=== PATIENT | female | born 1960 | race Caucasian/White ===

== ENCOUNTER → 2021-05-10 15:14 | Outpatient (CLI) | payer OTHER, SELFPAY ==
--- NOTE | ~2021-05-10 | MM_ITS ---
EXAMINATION: MM screening paula BI w ashli HISTORY: Screening TECHNIQUE: Craniocaudal and mediolateral oblique 3-D tomosynthesis images were obtained and synthetic 2-D images were generated. CAD analysis was submitted and interpreted. COMPARISON: Comparison to multiple prior studies sequentially, with oldest reviewed study dated 07/25. BREAST PARENCHYMAL COMPOSITION: Breast composed of scattered areas of fibroglandular density FINDINGS: There is no evidence of suspicious mass, calcification, or architectural distortion to sugg est malignancy in either breast. There has been no suspicious interval change. IMPRESSION: 1. No mammographic evidence of malignancy. 2. Recommend routine screening mammography in one year. BI-RADS Category 1: Negative Reviewed, dictated and finalized at location A. PREMISE SERVICE REPRESENTATIVE
== END ==
PROVIDERS: PCP Family Medicine; Visit Provider Physician Assistant Medical
DX: Z12.31 Encounter for screening mammogram for malignant neoplasm of breast (principal)
CPT/HCPCS: 77063; 77067

== ENCOUNTER → 2022-09-12 09:21 | Outpatient (CLI) | payer BC, SELFPAY ==
--- NOTE | ~2022-09-12 | XR_ITS ---
Clinical Indication: Cough PA and lateral views of the chest: Comparison: None Findings: The lungs are clear, without evidence of focal consolidation or pleural effusion. Cardiome diastinal silhouette is within normal limits. Bones and soft tissues are unremarkable. Impression: Normal chest. Reviewed, dictated and finalized at location . Impression: Normal chest.
== END ==
PROVIDERS: PCP Family Medicine; Visit Provider Physician Assistant
DX: R05.3 Chronic cough (principal); R06.02 Shortness of breath
CPT/HCPCS: 71046

== ENCOUNTER → 2022-10-12 10:31 | Outpatient (CLI) | payer BC, SELFPAY ==
--- NOTE | ~2022-10-12 | MM_ITS ---
EXAMINATION: MM screening paula BI w ashli HISTORY: Screening mammogram TECHNIQUE: Craniocaudal and mediolateral oblique 3-D tomosynthesis images were obtained and synthetic 2-D images were generated. CAD analysis was submitted and interpreted. COMPARISON: 05/10/2021 bilateral screening mammogram 02/21/2019 diagnostic right mammogram and limited right breast ultrasound examination 02/12/2019 bilateral screening mammogram BREAST PARENCHYMAL COMPOSITION: There are scattered areas of fibroglandular density. FINDINGS: Biopsy marker in the upper outer right breast; history of prior benign right stereotactic b reast biopsy. Occasional bilateral benign calcifications. Stable bilateral benign axillary tail lymph nodes. There is no evidence of suspicious mass, calcification, or architectural distortion to suggest malignancy i n either breast. There has been no suspicious interval change. IMPRESSION: 1. No mammographic evidence of malignancy. 2. Recommend routine screening mammography in one year. BI-RADS Category 1: Negative Reviewed, dictated and finalized at location A.
== END ==
PROVIDERS: PCP Family Medicine; Visit Provider Physician Assistant
DX: Z12.31 Encounter for screening mammogram for malignant neoplasm of breast (principal)
CPT/HCPCS: 77063; 77067

== ENCOUNTER 2023-05-02 09:51 | Outpatient (CLI) | payer MEDICARE, SELFPAY ==
--- NOTE | 2023-05-02 13:09 | WPDPFTINT ---
PFT Procedure Performed PFT Procedure Performed Plethysmography (Lung Vol) Diffusing Cap (DLCO) Flow Vol Loop Spirometry w/o Bronchodil PFT Interpretation This is a pulmonary function test with spirometry, plethysmography and diffusing capacity. The test was performed and results interpreted in accordance with the 2019 and 2005 ATS/ERS Task Force guidelines respectively using the Global Lung Function Initiative-2012 reference equations. Patient demonstrated good effort and cooperation. Reproducibility criteria were met. The quality of the spirometry maneuver was Grade A. Findings: Spirometry: Contour the inspiratory and expiratory flow tracing are normal. The FVC is 2.45 L, 90% predicted. The FEV1 is 1.92 L, 89% predicted. The FEV1: FVC ratio 78%. Plethysmography: The total lung capacity is 4.42 L, 96% predicted. The functional residual capacity is 2.01 L, 77% predicted. The residual volume is 1.67 L, 87% predicted. Diffusing capacity: The diffusing capacity unadjusted for hemoglobin and carboxyhemoglobin is 15.6, 78% predicted. The diffusing capacity adjusted for alveolar volume is 4.02, 89% predicted. Impression: The spirometry is normal without evidence of an obstructive abnormality. The lung volumes are normal. The diffusing capacity is normal. There are no prior studies for comparison
== END 2023-05-02 09:52 | disposition home or self-care (01) ==
LOC: ANHPFT 09:53
PROVIDERS: PCP Family Medicine; Visit Provider Physician Assistant
DX: R05.9 Cough, unspecified (principal)
CPT/HCPCS: 94375; 94726; 94729

== ENCOUNTER 2023-05-16 11:12 | Outpatient (CLI) | payer MEDICARE, SELFPAY ==
[2023-05-16 19:49] LABS: Basophils Absolute Auto 0.1 K/mm3 (0.0-0.1); Basophils Percent Auto 0.9 % (0.2-1.2); Eosinophils Absolute Auto 0.1 K/mm3 (0-0.3); Eosinophils Percent Auto 1.7 % (0-4.4); Hematocrit 39.7 % (37.0-47.0); Hemoglobin 11.6 g/dL (12.0-15.0); Immature Granulocyte Absolute 0.01 K/mm3 (0.00-0.031); Immature Granulocyte Percent A 0.2 % (0-0.5); Lymphocytes Percent Auto 35.6 % (18.3-44.2); Mean Corpuscular HGB Conc 29.2 g/dl (32-36); Mean Corpuscular Hemoglobin 23.6 pg (26-34); Mean Corpuscular Volume 80.9 fl (80-100); Mean Platelet Volume 10.3 fl (7.4-10.4); Monocytes Absolute Auto 0.5 K/mm3 (0.1-0.6); Monocytes Percent Auto 7.4 % (2.6-8.5); Neutrophils Absolute Auto 3.5 K/mm3 (1.3-6.7); Neutrophils Percent Auto 54.2 % (45.5-73.1); Platelet Count Result 353 k/mm3 (150-375); Red Blood Count 4.91 M/mm3 (4.2-5.4); Red Cell Distribution Width 16.1 % (11.5-14.5); White Blood Count 6.5 K/mm3 (4.5-10.0)
[2023-05-16 20:19] LABS: Alanine Aminotransferase 36 U/L (6-35); Albumin Level 4.5 g/dL (3.5-5.1); Alkaline Phosphatase 91 U/L (38-126); Anion Gap 12 mmol/L (8-16); Aspartate Amino Transferase 48 U/L (14-36); Bilirubin,Total 0.4 mg/dL (0.2-1.3); Blood Urea Nitrogen 23 mg/dL (7-17); Calcium 9.8 mg/dL (8.4-10.2); Carbon Dioxide 29 mmol/L (22-30); Chloride 102 mmol/L (98-107); Cholesterol 185 mg/dL (0-200); Estimated Glomerular Filt Rate > 60; Glucose 73 mg/dL (65-110); HDL Direct 35 mg/dL; Potassium 5.5 mmol/L (3.4-5.0); Sodium 143 mmol/L (137-145); Triglycerides 253 mg/dL (<150)
[2023-05-16 20:30] LABS: LDL Cholesterol Direct 102 mg/dL
[2023-05-16 20:53] LABS: Hypochromasia 1+ (NORMAL); Ovalocytes 1+ (NORMAL); Platelet Estimate Adequate (Adequate); Schistocytes None Seen (NORMAL)
[2023-05-16 23:02] LABS: Vitamin D 25 Hydroxy 29.2 ng/mL
[2023-05-17 06:29] LABS: Ferritin 9.89 ng/mL (11.1-264)
== END 2023-05-16 11:13 | disposition home or self-care (01) ==
LOC: ANHGOSHLAB 11:13
PROVIDERS: PCP Family Medicine; Visit Provider Family Medicine
DX: K27.9 Peptic ulcer, site unspecified, unspecified as acute or chronic, without hemorrhage or perforation (principal); K21.9 Gastro-esophageal reflux disease without esophagitis; E78.00 Pure hypercholesterolemia, unspecified; I10 Essential (primary) hypertension; Z79.899 Other long term (current) drug therapy
CPT/HCPCS: 36415; 80053; 80061; 82306; 82607; 82728; 85025

== ENCOUNTER → 2023-05-22 07:37 | Outpatient (CLI) | payer MEDICARE, SELFPAY ==
--- NOTE | ~2023-05-22 | US_ITS ---
Limited Abdominal Sonogram: Real-time sonographic imaging of the right upper quadrant was performed. Clinical History: Abnormal serum enzyme levels Findings: The liver appears echogenic, with no evidence of mass lesion or bile duct dilatation. Ther e is probable focal fatty sparing adjacent to the gallbladder. Main portal vein demonstrates normal d irection of flow. The gallbladder is well distended, and appears normal with no evidence of gallstone or wall thickening. The common bile duct measures 7 mm. The visualized pancreas, aorta, and IVC are unremarkable. Impression: Diffuse fatty infiltration of liver. Reviewed, dictated and finalized at location M. LOADER AND UNLOADER Impression: Diffuse fatty infiltration of liver.
== END ==
PROVIDERS: PCP Family Medicine; Visit Provider Family Medicine
DX: R74.8 Abnormal levels of other serum enzymes (principal); K76.0 Fatty (change of) liver, not elsewhere classified
CPT/HCPCS: 76705

== ENCOUNTER 2023-06-20 01:45 | Day surgery (SDC) | payer MEDICARE, SELFPAY ==
[2023-05-26 15:59] VITALS: BMI 38.9
--- NOTE | 2023-06-16 09:48 | SUR.PREOP ---
Patient called regarding upcoming procedure. Reviewed preop instructions, appointment times, and procedure prep.
--- NOTE | 2023-06-19 15:11 | PM.HPGS ---
History of Present Illness History of Present Illness Consent: Risks, benefits, and alternatives have been discussed and questions answered. Patient agrees to proceed with procedure. Chief complaint: Iron deficiency anemia,peptic ulcer Narrative: Paz Latif is a 63 year old female referred for investigation of iron deficiency anemia. Her last hemoglobin was 10.9. Review of Systems Review of Systems: All systems reviewed & are unremarkable except as noted in HPI and below PMFSH Past Medical History Medical History Anxiety Elevated liver enzymes Gastroesophageal reflux disease HTN (hypertension) MVP (mitral valve prolapse) Obesity PUD (peptic ulcer disease) Surgical History Surgical History Status post right knee replacement Family History Family History Father Hypertension Family history of coronary artery disease Social History Social History Years smoked: 20 Smoking status: Former smoker Tobacco type: cigarettes Smoking end date: 01/07/95 Alcohol intake: never Substance use type: does not use Lack of Transportation: No Lack of Food: Never True Current Housing: I Have Housing Concerned About Future Housing: No Difficulty Paying Gas/Electric Bills: No Difficulty Paying for Meds: No Currently Unemployed: No Education: High School Diploma/GED Difficulty w/ Childcare or Family Care: No Living arrangements: with family Spiritual care concerns: No Meds Home Medications and Allergies Home Medications Medication Instructions Recorded Confirmed Type diphenhydramine HCl 25 mg tablet 25 mg PO HS PRN Sleep 04/09/19 06/20/23 History (Benadryl Allergy) atorvastatin 20 mg tablet 20 mg PO DAILY #90 tabs 04/17/23 06/20/23 Rx clonazepam 1 mg tablet 1 mg PO BID PRN anxiety 90 days 04/17/23 06/20/23 Rx #180 tabs fenofibrate micronized 134 mg See Rx Instructions .Route 04/17/23 06/20/23 Rx capsule .COMPLEX #90 caps fluoxetine 10 mg capsule See Rx Instructions .Route 04/17/23 06/20/23 Rx .COMPLEX #90 caps pantoprazole 40 mg tablet,delayed 40 mg PO QAM #90 tabs 04/17/23 06/20/23 Rx release triamterene 37.5 1 cap PO DAILY 90 days #90 caps 04/17/23 06/20/23 Rx mg-hydrochlorothiazide 25 mg capsule mometasone 50 mcg/actuation nasal 2 spray intranasal DAILY #17 grams 04/21/23 06/20/23 Rx spray benzonatate 200 mg capsule 200 mg PO TID PRN cough #90 caps 05/16/23 06/20/23 Rx triamcinolone acetonide 0.1 % See Rx Instructions .Route 05/17/23 06/20/23 Rx topical cream .COMPLEX #240 grams fluticasone furoate 200 1 inh inhalation DAILY #60 ea 06/08/23 06/20/23 Rx mcg-vilanterol 25 mcg/dose inhalation powder (Breo Ellipta) Allergies Allergy/AdvReac Type Severity Reaction Status Date / Time meloxicam Allergy Unknown Rash Verified 06/20/23 06:27 Exam Const: General: alert Orientation/consciousness: patient oriented x3 Resp: Auscultation: clear to auscultation bilaterally Cardio: Rhythm: regular rhythm GI: GI Palp: Yes Soft to palpation and No Tenderness to palpation present (GI) Neuro: General: patient oriented x3 Assessment and Plan Assessment and plan (1) Iron deficiency anemia: Qualifiers: Iron deficiency anemia type: unspecified iron deficiency Qualified Code(s): D50.9 - Iron deficiency anemia, unspecified Code(s): D50.9 - Iron deficiency anemia, unspecified Status: Acute Assessment and Plan: EGD with possible biopsy or dilatation or cautery. Colonoscopy with possible biopsy or polypectomy or cautery or injection of substances.
[2023-06-20 06:28] VITALS: BP 152/81; PULSE 79; RESP 18; TEMP 36.5; O2SAT 98
[2023-06-20] MEDS: LACTATED RINGERS 1,000 ML 150 ML IV CONT (06:36)
--- NOTE | 2023-06-20 07:23 | WPDANESEPPF ---
Anes - Initial Pre Proc Eval Procedure: Operation Date: 06/20/23 07:30 Proposed Procedures p Esophagogastroduodenoscopy & Colonoscopy - Aldo Kirkland MD Date/Time: 06/20/23 07:23 Surgeon: Aldo Kirkland MD Pre Op Diagnosis: Iron deficiency anemia,peptic ulcer Patient Data Age: 63 Gender: F Height: 1.55 m Weight: 97.1 kg Last Vital Signs Temp 97.7 F 06/20/23 06:28 Pulse 79 06/20/23 06:28 Resp 18 06/20/23 06:28 BP 152/81 H 06/20/23 06:28 Pulse Ox 98 06/20/23 06:28 O2 Del Method Room Air 06/20/23 06:28 Allergies Allergy/AdvReac Type Severity Reaction Status Date / Time meloxicam Allergy Unknown Rash Verified 06/20/23 06:27 Home Medications Medication Instructions Recorded Confirmed Type diphenhydramine HCl 25 mg tablet 25 mg PO HS PRN Sleep 04/09/19 06/20/23 History (Benadryl Allergy) atorvastatin 20 mg tablet 20 mg PO DAILY #90 tabs 04/17/23 06/20/23 Rx clonazepam 1 mg tablet 1 mg PO BID PRN anxiety 90 days 04/17/23 06/20/23 Rx #180 tabs fenofibrate micronized 134 mg See Rx Instructions .Route 04/17/23 06/20/23 Rx capsule .COMPLEX #90 caps fluoxetine 10 mg capsule See Rx Instructions .Route 04/17/23 06/20/23 Rx .COMPLEX #90 caps pantoprazole 40 mg tablet,delayed 40 mg PO QAM #90 tabs 04/17/23 06/20/23 Rx release triamterene 37.5 1 cap PO DAILY 90 days #90 caps 04/17/23 06/20/23 Rx mg-hydrochlorothiazide 25 mg capsule mometasone 50 mcg/actuation nasal 2 spray intranasal DAILY #17 grams 04/21/23 06/20/23 Rx spray benzonatate 200 mg capsule 200 mg PO TID PRN cough #90 caps 05/16/23 06/20/23 Rx triamcinolone acetonide 0.1 % See Rx Instructions .Route 05/17/23 06/20/23 Rx topical cream .COMPLEX #240 grams fluticasone furoate 200 1 inh inhalation DAILY #60 ea 06/08/23 06/20/23 Rx mcg-vilanterol 25 mcg/dose inhalation powder (Breo Ellipta) Patient hx anesthesia problems: none Family hx anesthesia problems: none Results Review: All pre-operative results and documents have been reviewed as part of the pre-operative evaluation. [facility] Past Medical History Medical History Anxiety Elevated liver enzymes Gastroesophageal reflux disease HTN (hypertension) MVP (mitral valve prolapse) Obesity PUD (peptic ulcer disease) Surgical History Surgical History Status post right knee replacement Family History Family History Father Hypertension Family history of coronary artery disease Social History Social History Years smoked: 20 Smoking status: Former smoker Tobacco type: cigarettes Smoking end date: 01/07/95 Alcohol intake: never Substance use type: does not use Lack of Transportation: No Lack of Food: Never True Current Housing: I Have Housing Concerned About Future Housing: No Difficulty Paying Gas/Electric Bills: No Difficulty Paying for Meds: No Currently Unemployed: No Education: High School Diploma/GED Difficulty w/ Childcare or Family Care: No Living arrangements: with family Spiritual care concerns: No Anes - Eval Final PreProcedure Day of Procedure 06/20/23 07:23 Patient weight: morbidly obese Heart: regular rate and rhythm Lungs: clear to auscultation Airway: Mallampati scale class III Neurological: alert and oriented Last oral intake: >/= 8 hours ASA classification: III Emergent: no Anesthetic plan: proceed Anesthesia type and monitoring: general GIVS and standard monitoring Results Review: All pre-operative results and documents have been reviewed as part of the pre-operative evaluation. Informed Consent: The patient's anesthetic plan and its attendant risks and benefits were discussed with the patient/family/POA. Questions were solicited and answers provided to
--- NOTE | 2023-06-20 07:48 | SUR.OPER ---
EGD END: 737 COLONOSCOPY START: 747
[2023-06-20 08:01] VITALS: BP 127/65; PULSE 84; RESP 16; O2SAT 99
[2023-06-20 08:11] VITALS: BP 128/65; PULSE 80; RESP 14; O2SAT 99
[2023-06-20 08:21] VITALS: BP 114/60; PULSE 74; RESP 16; O2SAT 100
== END 2023-06-20 08:37 | disposition home or self-care (01) ==
PROVIDERS: PCP Family Medicine; Visit Provider Internal Medicine Gastroenterology
PROC: 0DJ08ZZ Inspection of Upper Intestinal Tract, Via Natural or Artificial Opening Endoscopic (ICD-10-PCS; CPT 43235; principal; 2023-06-20 07:30)
DX: K31.89 Other diseases of stomach and duodenum (principal); D50.9 Iron deficiency anemia, unspecified; K64.8 Other hemorrhoids; F41.9 Anxiety disorder, unspecified; K21.9 Gastro-esophageal reflux disease without esophagitis; I10 Essential (primary) hypertension; K27.9 Peptic ulcer, site unspecified, unspecified as acute or chronic, without hemorrhage or perforation; E66.01 Morbid (severe) obesity due to excess calories; Z68.41 Body mass index [BMI] 40.0-44.9, adult; Z79.51 Long term (current) use of inhaled steroids; Z86.79 Personal history of other diseases of the circulatory system; Z87.891 Personal history of nicotine dependence; Z82.49 Family history of ischemic heart disease and other diseases of the circulatory system
CPT/HCPCS: 43239; 45378; 88305; J2704; J7120

== ENCOUNTER 2023-11-24 09:43 | Outpatient (CLI) | payer MEDICARE, SELFPAY ==
--- NOTE | ~2023-11-24 | MM_ITS ---
EXAMINATION: MM screening paula BI w ashli HISTORY: Screening TECHNIQUE: Craniocaudal and mediolateral oblique 3-D tomosynthesis images were obtained and synthetic 2-D images were generated. CAD analysis was submitted and interpreted. COMPARISON: Comparison to multiple prior studies sequentially, with oldest reviewed study dated 07/25. BREAST PARENCHYMAL COMPOSITION: Not dense: There are scattered areas of fibroglandular density. FINDINGS: There is no evidence of suspicious mass, calcification, or architectural distortion to sugg est malignancy in either breast. There has been no suspicious interval change. IMPRESSION: 1. No mammographic evidence of malignancy. 2. Recommend routine screening mammography in one year. BI-RADS Category 1: Negative Reviewed, dictated and finalized at location B.
== END 2023-11-24 09:44 ==
LOC: MICIMG 09:44
PROVIDERS: PCP Family Medicine; Visit Provider Family Medicine
DX: Z12.31 Encounter for screening mammogram for malignant neoplasm of breast (principal)
CPT/HCPCS: 77063; 77067

== ENCOUNTER 2024-05-10 08:50 | Outpatient (CLI) | payer MEDICARE, SELFPAY ==
[2024-05-13 07:48] LABS: Kit Draw Collected
== END 2024-05-10 08:51 | disposition home or self-care (01) ==
PROVIDERS: PCP Family Medicine; Visit Provider Family Medicine
DX: E87.5 Hyperkalemia (principal); D64.9 Anemia, unspecified; R79.0 Abnormal level of blood mineral; K76.9 Liver disease, unspecified; R74.8 Abnormal levels of other serum enzymes
CPT/HCPCS: 36415

== ENCOUNTER 2025-05-06 11:35 | Outpatient (CLI) | payer MEDICARE, SELFPAY ==
--- NOTE | ~2025-05-06 | MM_ITS ---
EXAMINATION: MM screening paula BI w ashli HISTORY: Screening. TECHNIQUE: Craniocaudal and mediolateral oblique 3-D tomosynthesis images were obtained and synthetic 2-D images were generated. CAD analysis was submitted and interpreted. COMPARISON: 2023, 2022, and 2020. BREAST PARENCHYMAL COMPOSITION: Not Dense: The breasts are almost entirely fatty FINDINGS: There is a biopsy marker on the right. No suspicious masses are seen. There are no suspicious calcifications. No unexplained architectural distortion is seen. There are no skin or nipple abnormalities identified. There is no adenopathy seen on the images submitted. IMPRESSION: No mammographic evidence to suggest malignancy is seen. The patient may return to screening mammography as per ACR guidelines. BI-RADS 1 - Negative. Reviewed, dictated and finalized at location C. DING MACHINE OPERATOR
== END 2025-05-06 11:36 | disposition home or self-care (01) ==
LOC: MICIMG 11:36
PROVIDERS: PCP Family Medicine; Visit Provider Family Medicine
DX: Z12.31 Encounter for screening mammogram for malignant neoplasm of breast (principal)
CPT/HCPCS: 77063; 77067